=== PATIENT | male | born 1995 | race Two or more races ===

== ENCOUNTER 2022-08-20 06:19 | Day surgery (SDC) | payer MEDICAID ==
[2022-08-18 11:27] LABS: Basophils # (auto) 0.1 10 ^3/uL (0-0.2); Basophils % (auto) 0.9 % (0.0-2.0); Eosinophils # (auto) 0.5 10 ^3/uL (0-0.8); Eosinophils % (auto) 7.3 % (0.0-7.0); Hematocrit 45.3 % (41.0-53.0); Lymphocytes # (auto) 2.1 10 ^3/uL (0.4-5.4); Lymphocytes % (auto) 32.8 % (10.0-50.0); Mean Corpuscular Hemoglobin 30.5 pg (28.0-32.0); Mean Corpuscular Hgb Conc. 35.3 g/dL (32.0-36.0); Mean Corpuscular Volume 86.3 fL (80.0-100.0); Monocytes # (auto) 0.6 10 ^3/uL (0-1.3); Neutrophils # (auto) 3.1 10 ^3/uL (1.6-8.6); Nucleated Red Blood Cells % 0.2 %; Red Blood Cells 5.24 10^6/uL (4.5-5.90); Red Cell Distribution Width 12.2 % (11.8-14.3); White Blood Cell 6.3 10^3/uL (4.4-10.8)
[2022-08-18 11:38] LABS: Urine Bacteria NONE SEEN /hpf (None Seen); Urine Blood Negative /uL (Negative); Urine Mucus FEW (None Seen); Urine WBC 1 /hpf (0 - 3)
[2022-08-18 11:50] LABS: INR 1.03 (0.9-1.15); Partial Thromboplastin Time 29.3 SEC (24.5-34.5)
[2022-08-18 12:34] LABS: Albumin 3.8 g/dL (3.4-5.0); Calcium 8.6 mg/dL (8.5-10.1); Potassium 4.1 mmol/L (3.5-5.1)
[2022-08-18 12:38] LABS: BUN/Creatinine Ratio 10.6 (10.0-20.0)
[2022-08-18 12:40] LABS: Bilirubin, Total 0.7 mg/dL (0.2-1.0); Total Protein 7.3 g/dL (6.4-8.2)
[~2022-08-20] VITALS: Ht 170.2 cm; Wt 91.6 kg
[~2022-08-20 06:19] MED LIST: CETI10TA2 PO
[2022-08-20] MEDS ORDERED: ceFAZolin 1GM/50ML 100 ML IV ONE (06:36)
[2022-08-20] MEDS ORDERED: LIDOCAINE 1%-Mpf/Epinephrine 1:200,000 ONE (07:07)
[2022-08-20] MEDS ORDERED: BUPIVACAINE 0.25% INJ 50ML VIAL ONE (07:07)
[2022-08-20] MEDS ORDERED: fentaNYL CITRATE 100 MCG/2 ML VL ONE (07:26)
[2022-08-20] MEDS ORDERED: MIDAZOLAM HCL 2MG/2ML 2ml VIAL (1mg/ml) ONE (07:26)
[2022-08-20] MEDS ORDERED: DexAMETHasone SOD PHOS 10MG/1ML VIAL INJ ONE (07:27)
[2022-08-20] MEDS ORDERED: GLYCOPYRROLATE 0.2 MG/ML 1ML VIAL ONE (07:27)
[2022-08-20] MEDS ORDERED: KETOROLAC TROMETH 60MG/2ML VIAL ONE (07:27)
[2022-08-20] MEDS ORDERED: ONDANSETRON HCL 4 MG/2 ML VIAL ONE (07:27)
[2022-08-20] MEDS ORDERED: LIDOCAINE HCL 100 MG/5ML (2%) SYRG INJ IV ONE (07:27)
[2022-08-20] MEDS ORDERED: PROPOFOL 10 MG/ML 20 ML IV ONE (07:27)
[2022-08-20] MEDS ORDERED: MEPERIDINE HCL (25 MG/ML) 1ML VIAL ONE (07:39)
[2022-08-20] MEDS ORDERED: KETAMINE HCL 10 ML ONE (07:45)
[2022-08-20] MEDS ORDERED: POVIDONE IODINE 10 % TOPICAL OINT 30GM TOP ONE (07:56)
[2022-08-20] MEDS ORDERED: HYDROmorphone HCL 2 MG/ML VL/or syr IV PRN (08:15)
[2022-08-20] MEDS ORDERED: ONDANSETRON HCL 4 MG/2 ML VIAL IV PRN (08:15)
[2022-08-20 09:10] VITALS: BP 134/88
== END 2022-08-20 09:25 | disposition home or self-care (01) ==
LOC: SUR 06:19
PROVIDERS: ATTEND Surgery
DX: D17.1 Benign lipomatous neoplasm of skin and subcutaneous tissue of trunk (principal)
CPT/HCPCS: 22902; 36415; 80053; 81001; 85025; 85610; 85730; 86850; 86900; 86901; J0690; J1100; J1885; J2001; J2175; J2250; J2405; J2704; J3010; J3490

== ENCOUNTER 2022-11-25 02:34 | Emergency (ER) | payer MEDICAID ==
[~2022-11-25] VITALS: Ht 170.2 cm; Wt 92.2 kg
[2022-11-25] MEDS: LIDOCAINE W/ EPINEPHRINE 1% 20ML VIAL ONE (02:59)
[2022-11-25] MEDS ORDERED: LEVO750T40 PO (03:26)
[2022-11-25 03:45] VITALS: BP 132/92; PULSE 110; RESP 19; TEMP 98.9; O2SAT 96
[2022-11-25] MEDS: LIDOCAINE W/ EPINEPHRINE 1% 20ML VIAL SC ONE (03:50)
[2022-11-25] MEDS: LORazepam 0.5 MG TAB PO ONE (03:50)
[2022-11-25] MEDS: levoFLOXacin 500 MG TAB PO ONE (03:50)
[2022-11-25] MEDS ORDERED: ALPR0.25 PO (23:28)
[2022-11-25] MEDS ORDERED: HYDR-4798 PO (23:28)
== END 2022-11-25 04:00 | disposition home or self-care (01) ==
LOC: ER 02:36
DX: R04.0 Epistaxis (principal); Z98.890 Other specified postprocedural states; Z79.899 Other long term (current) drug therapy
CPT/HCPCS: 30901; 96372

== ENCOUNTER 2022-11-25 18:33 | Emergency (ER) | payer MEDICAID ==
[~2022-11-25] VITALS: Ht 170.2 cm; Wt 92.2 kg
[~2022-11-25 18:33] MED LIST changes: +LEVO750T40 PO
[2022-11-25] MEDS ORDERED: HYDR-4798 PO (23:28)
[2022-11-25] MEDS ORDERED: ALPR0.25 PO (23:28)
[2022-11-25] MEDS ORDERED: HYDROcodone-ACET 10/325MG TAB PO ONE (23:30)
[2022-11-25 23:50] VITALS: BP 151/104; PULSE 94; RESP 16; TEMP 98; O2SAT 99
== END 2022-11-26 00:18 | disposition home or self-care (01) ==
LOC: ER 18:33
DX: J34.89 Other specified disorders of nose and nasal sinuses (principal); Z79.899 Other long term (current) drug therapy